=== PATIENT | male | born 1955 | race Two or more races ===

== ENCOUNTER 2024-08-01 11:04 | Inpatient (IN) | payer OTHER, MEDICAID ==
[2024-07-30 10:15] LABS: Urine Bacteria None Seen /hpf (None Seen)
[2024-07-30 10:24] LABS: Basophils # (auto) 0.1 10 ^3/uL (0-0.2); Basophils % (auto) 0.8 % (0.0-2.0); Eosinophils # (auto) 0.2 10 ^3/uL (0-0.8); Eosinophils % (auto) 2.5 % (0.0-7.0); Hematocrit 36.7 % (41.0-53.0); Hemoglobin 12.8 g/dL (13.5-17.5); Lymphocytes # (auto) 1.6 10 ^3/uL (0.4-5.4); Lymphocytes % (auto) 23.8 % (10.0-50.0); Mean Corpuscular Hemoglobin 31.2 pg (28.0-32.0); Mean Corpuscular Hgb Conc. 34.7 g/dL (32.0-36.0); Mean Corpuscular Volume 89.9 fL (80.0-100.0); Monocytes # (auto) 0.6 10 ^3/uL (0-1.3); Monocytes % (auto) 8.6 % (0.0-12.0); Neutrophils # (auto) 4.3 10 ^3/uL (1.6-8.6); Neutrophils % (auto) 64.3 % (37.0-80.0); Nucleated Red Blood Cells % 0.1 %; Platelet Count (auto) 254 10^3/uL (140-450); Red Blood Cells 4.08 10^6/uL (4.5-5.90); White Blood Cell 6.7 10^3/uL (4.4-10.8)
[2024-07-30 10:36] LABS: INR 1.03 (0.9-1.15); Partial Thromboplastin Time 29.8 SEC (24.5-34.5); Prothrombin Time 10.9 sec (9.3-11.8)
[2024-07-30 10:40] LABS: Urine Blood Negative /uL (Negative); Urine Clarity Clear (Clear); Urine Color Yellow (Yellow); Urine Mucus FEW (None Seen); Urine Protein, UAD Negative (Negative); Urine Squamous Epithelial Cell FEW /hpf (<5); Urine Urobilinogen 4 mg/dL (Negative); Urine WBC 1 /HPF (0-3); Urine pH 6.5 (5.0-9.0)
[2024-07-30 10:57] LABS: Alanine Aminotransferase 10 U/L (7-40); Albumin 4.5 g/dL (3.2-4.8); Alkaline Phosphatase 104 U/L (46-116); Anion Gap 9 (5-15); Aspartate Aminotransferase 17 U/L (<34); BUN/Creatinine Ratio 12.4 (10.0-20.0); Blood Urea Nitrogen 11 mg/dL (9-23); Calcium 9.8 mg/dL (8.7-10.4); Carbon Dioxide 28 mmol/L (20-31); Chloride 106 mmol/L (98-107); Glucose 81 mg/dL (74-106); Sodium 143 mmol/L (136-145); Total Protein 7.7 g/dL (5.7-8.2)
[2024-07-30 10:58] LABS: Bilirubin, Total 0.4 mg/dL (0.2-1.0)
[~2024-08-01] VITALS: Ht 180.3 cm; Wt 106.5 kg
[~2024-08-01 11:04] MED LIST: AML5T GT; CHOLCAP10 PO; CYAN-37 PO; ETOD-182 PO; FOLITAB22 PO; HYDR-4072 PO; HYDR-4491 OR; LIDO3CRE16 EX; LISI20TA56 PO; METH2.5T62 PO; TRIA0.1O EX
[2024-08-01] MEDS ORDERED: ONDANSETRON HCL 4 MG/2 ML VIAL ONE (13:30)
[2024-08-01] MEDS ORDERED: LIDOCAINE 1% INJ PF 5ML AMP ONE (13:30)
[2024-08-01] MEDS ORDERED: DexAMETHasone SOD PHOS 10MG/1ML VIAL INJ ONE ×2 (13:30→14:07)
[2024-08-01] MEDS ORDERED: GLYCOPYRROLATE 0.2 MG/ML 1ML VIAL ONE (13:30)
[2024-08-01] MEDS ORDERED: PROPOFOL 10 MG/ML 20 ML IV ONE ×4 (13:30→16:10)
[2024-08-01] MEDS ORDERED: KETAMINE 50mg/ML 1ml syringe ONE (13:31)
[2024-08-01] MEDS ORDERED: KETOROLAC TROMETH 30 MG/ML 1ML VIAL ONE (14:07)
[2024-08-01] MEDS: CELECOXIB 100 MG CAP PO ONE (14:09)
[2024-08-01] MEDS: ACETAMINOPHEN IV 1000 MG/100ML (10MG/ML) IV ONE (14:09)
[2024-08-01] MEDS: GABAPENTIN 300 MG CAP PO ONE (14:10)
[2024-08-01] MEDS: ceFAZolin 2 GM/D5W50ml 50 ML IV ONE (14:45)
[2024-08-01] MEDS: CEFEPIME 1GM/ 50ML 50 ML IV ONE (14:45)
[2024-08-01] MEDS: TRANEXAMIC ACID 20 ML ONE (15:01)
[2024-08-01] MEDS: VANCOMYCIN HCL 1000 MG VL ONE (15:01)
[2024-08-01 16:41] VITALS: PULSE 85; RESP 18; O2SAT 96
--- NOTE | 2024-08-01 16:59 | DVHOP2 ---
Operative Report - 2 Report Details Date: 08/01/24 Preop Diagnosis: LEFT KNEE DEGENERATIVE ARTHRITIS Postop Diagnosis: Left knee degenerative arthritis Surgeon: Sharee Haynes MD Anesthesiologist: Yaya Saeed/Nav Anesthesia: Regional Drains: Fahad closed wound suction Implant: Bc dhaliwal knee size 10 femur PS, size nine tibial base plate, size 10 poly, size 35 patella Consent: The patient was informed of the risks and benefits of the procedure. These include but are not limited to complications of anesthesia, postoperative infection, incomplete relief of symptoms, recurrence of symptoms, damage to blood vessels, nerves and tendons, deep venous thrombosis, pulmonary embolism and possible need for repeat surgery in the future. Complications: None Estimated Blood Loss: 75 cc Fluids: See anesthesia record Findings: Severe three compartment degenerative arthritis with denuded cartilage and eburnated bone osteophytes and severe loss of range of motion with a 45 degree flexion contracture and flexing only to 90 Indications for Surgery: Left knee degenerative arthritis with severe pain and functional impairment Name of Procedure Performed Left total knee arthroplasty Procedure Details Procedure Details: The patient was brought to the operating room and placed on the table in the supine position after being given spinal anesthetic with adequate analgesia ob tained. Patient also received local regional block. Surgical timeout was performed verifying patient, laterality and procedure Preop patient received IV cefepime IV Ancef and IV tranexamic acid. Tourniquet was applied to the lower extremity. Extremity was elevated, exsanguinated Esmarch, and tourniquet inflated. Lower extremity was prepped and draped in sterile fashion. Midline incision was made followed by medial arthrotomy. I exposed the anterior medial and lateral tibial plateau and the anterior distal femur. Bovie and aqua mantis were used for hemostasis. I excised the anterior meniscal tissue with Bovie. I excised a portion of the fat pad with Bovie. The patella was everted and the knee flexed. I drilled the distal femur and suctioned the hole to reduce the risk of fat emboli. I inserted intramedullary guide with 5 degree valgus setting. I pinned the distal femoral cutting block anteriorly. Intramedullary george was removed. Distal femoral cut was made and the block removed. I brought my attention to the tibia setting up the external cutting jig for the tibia paying attention to slope, rotation and varus valgus alignment. I set the depth and pinned the block. I used the external alignment george to aid in checking alignment. Bone cut was made and bone removed releasing soft tissue attachments with Bovie. Cutting block removed. I then checked the extension gap which was tight. I reset the distal femoral cutting block to remove additional 2 mm distally. I then recut the distal femur. I again tried the extension gap which was still too tight. I then reset the tibial block dropping it down under 2 mm and re cutting. At this point I then had adequate gap. The pins from the femur and tibia were removed. I flexed the knee and applied the femoral sizing guide to the femur. I checked the size and external rotation setting at 90 degrees to [place]ites[place] line and checking the epicondylar axis. I drilled the holes then removed the sizing guide and pin. I then tapped on the 4 in 1 cutting block and checked with the dashawn wing anteriorly to make sure that I would not notch then pinned the block. Cuts were made and the block and pins were removed. Bone was removed with curved osteotome. I used a rongeur to remove any remaining osteophytes at the femur and tibia. I then used a lamina supervisor print line to open up the back alternating between the medial and lateral side. Any remaining meniscal tissue was excised with scalpel. I used curved osteotome, curette and rongeur to remove any posterior osteophytes. I prophylactically coagulated with aqua mantis. I then tapped on the template for the box cut and pinned it. Box cut was made and bone removed. Template and pin removed. I then tapped on the femoral trial. I then brought my attention back to the tibia sizing it. I used the external alignment george to make sure that rotation and alignment were good. I made a Bovie lacy at the tibial tray lacy identifying rotation for later use. I tried various tibial polytrials. [I then brought my attention to the patella. I sequentially dissected soft tissue with Bovie. I checked the thickness with caliper. I set the appropriate depth of cut on the cutting guide. I attached the cutting guide made my cut. I then sized the patella and made my drill holes. I then placed the patella trial with appropriate depth based on overall precut thickness. ] The patella tracked nicely without thumb pressure. I removed the trials. I pinned the tray and used the reamer and keel punch. The implants were brought into the field while bone preparation was started. I used both normal saline irrigation and the CarboJet to prepare the bone. Once cement was ready I applied cement to the tibial implant and tibial bone tapped it on and removed excess cement in usual fashion. In similar fashion I tapped on the femoral implant. I inserted the trial polyethylene and brought the knee into 30 degrees flexion. [I then applied the patella implant in similar fashion holding pressure with the pressurization device.] I irrigated with bactisurg irrigant. Once cement cured, I checked stability and range of motion as well as patella tracking. tourniquet was released and hemostasis maintained with aqua mantis. I inserted the trial poly again and checked stability. The trial poly at this point seemed a little lax on the lateral side in flexion so I elected to switch to a constrained poly of the same thickness. I used a 2 grams of vancomycin half of which was placed deep and half superficial. I repaired the extensor mechanism with the knee in flexion with #1 Ethibond interrupted [id number]. Deep subcutaneous tissue was closed with 0 Vicryl. Superficial subcutaneous tissue was closed with 2-0 vicryl interrupted. Skin was closed with patricia. I then applied the [fahad closed wound suction]. Patient tolerated the procedure well and was brought to recovery room in stable condition. Condition Stable Disposition Still a Patient SHAREE HAYNES MD Aug 01, 2024 16:59
[2024-08-01] MEDS: KETOROLAC TROMETH 30 MG/ML 1ML VIAL IV ONE (17:00)
[2024-08-01] MEDS ORDERED: ACETAMINOPHEN 325 MG TAB PO PRN (17:00)
[2024-08-01] MEDS: METOCLOPRAMIDE HCL 5MG/ml INJ 2ml VIAL IV ONE (17:00)
[2024-08-01] MEDS ORDERED: MORPHINE SULFATE INJ 2 MG/ml SYRG IV PRN (17:00)
[2024-08-01] MEDS ORDERED: HYDROmorphone HCL 2 MG/ML VL/or syr IV PRN ×2 (17:00)
[2024-08-01] MEDS ORDERED: MORPHINE SULFATE 4 MG/ML SYR/VIAL IV PRN (17:00)
[2024-08-01] MEDS: ACETAMINOPHEN 325 MG TAB PO SCH (17:59)
[2024-08-01] MEDS: KETOROLAC TROMETH 30 MG/ML 1ML VIAL IV SCH (17:59)
[2024-08-01 18:29] VITALS: BP 149/81; PULSE 81; RESP 18; TEMP 98; O2SAT 97
--- NOTE | 2024-08-01 18:41 | DVH ---
EXAM: XR Left Knee, 3 Views CLINICAL INDICATION: Postop TECHNIQUE: Three views of the left knee. COMPARISON: None FINDINGS: BONES/JOINTS: Total knee replacement. Intact hardware. Anatomic position. No acute fracture. No dislocation. SOFT TISSUES: Soft tissue swelling emphysema. Surgical skin patricia. OTHER FINDINGS: . IMPRESSION: Postoperative changes as above.
[2024-08-01] MEDS: D5W/LACTATED RINGERS 1,000 ML IV SCH (18:54)
[2024-08-01 20:00] VITALS: PULSE 81
[2024-08-01 21:00] VITALS: BP 147/81; PULSE 87; RESP 19; TEMP 97.5; O2SAT 98
[2024-08-01] MEDS: PREGABALIN 25 MG CAP PO SCH (22:36)
[2024-08-01] MEDS: ceFAZolin 2 GM/D5W50ml 50 ML IV SCH (22:36)
[2024-08-02 01:00] VITALS: BP 136/79; PULSE 84; RESP 19; TEMP 97.8; O2SAT 96
[2024-08-02 05:00] VITALS: BP 146/80; PULSE 81; RESP 19; TEMP 97.4; O2SAT 95
[2024-08-02] MEDS: oxyCODONE HCL 5MG TAB PO PRN ×2 (07:04→09:43)
[2024-08-02 07:46] LABS: Chloride 101 mmol/L (98-107); Potassium 3.9 mmol/L (3.5-5.1)
[2024-08-02 07:47] LABS: Anion Gap 9 (5-15); Carbon Dioxide 25 mmol/L (20-31)
[2024-08-02 07:48] LABS: Basophils # (auto) 0 10 ^3/uL (0-0.2); Basophils % (auto) 0.1 % (0.0-2.0); Eosinophils # (auto) 0 10 ^3/uL (0-0.8); Hematocrit 33.8 % (41.0-53.0); Hemoglobin 11.4 g/dL (13.5-17.5); Lymphocytes # (auto) 0.5 10 ^3/uL (0.4-5.4); Lymphocytes % (auto) 5.2 % (10.0-50.0); Mean Corpuscular Hemoglobin 29.9 pg (28.0-32.0); Mean Corpuscular Hgb Conc. 33.7 g/dL (32.0-36.0); Mean Corpuscular Volume 88.7 fL (80.0-100.0); Monocytes # (auto) 0.5 10 ^3/uL (0-1.3); Monocytes % (auto) 5.2 % (0.0-12.0); Neutrophils # (auto) 8.2 10 ^3/uL (1.6-8.6); Neutrophils % (auto) 89.5 % (37.0-80.0); Platelet Count (auto) 212 10^3/uL (140-450); Red Blood Cells 3.81 10^6/uL (4.5-5.90); Red Cell Distribution Width 13.8 % (11.8-14.3); White Blood Cell 9.2 10^3/uL (4.4-10.8)
[2024-08-02 07:52] LABS: Blood Urea Nitrogen 12 mg/dL (9-23)
[2024-08-02 07:53] LABS: Calcium 8.5 mg/dL (8.7-10.4); Glucose 150 mg/dL (74-106); Sodium 135 mmol/L (136-145)
[2024-08-02 08:00] VITALS: PULSE 81
[2024-08-02 08:51] VITALS: BP 144/86; PULSE 81; RESP 17; TEMP 96.9; O2SAT 97
[2024-08-02] MEDS: amLODIPine BESYLATE 5 MG TAB PO SCH (09:42)
[2024-08-02] MEDS: LISINOPRIL 20 MG TAB PO SCH (09:43)
[2024-08-02] MEDS: ASPirin 81 mg TAB PO SCH (09:43)
[2024-08-02] MEDS: Folic Acid-Pyridoxine-Cyancoba (Folbic) PO SCH (09:44)
[2024-08-02 13:00] VITALS: BP 144/85; PULSE 82; RESP 18; TEMP 97.4; O2SAT 98
--- NOTE | 2024-08-02 15:34 | DVHDS2 ---
Discharge Summary Date of Admission Aug 01, 2024 at 16:48 Date of Discharge: Aug 02, 2024 Labs/Diagnostic Data: Laboratory Results Test 08/02/24 06:17 07/30/24 10:08 White Blood Count 9.2 10^3/uL (4.4-10.8) Red Blood Count 3.81 10^6/uL (4.5-5.90) Hemoglobin 11.4 g/dL (13.5-17.5) Hematocrit 33.8 % (41.0-53.0) Mean Corpuscular Volume 88.7 fL (80.0-100.0) Mean Corpuscular Hemoglobin 29.9 pg (28.0-32.0) Mean Corpuscular Hemoglobin Concent 33.7 g/dL (32.0-36.0) Red Cell Distribution Width 13.8 % (11.8-14.3) Platelet Count 212 10^3/uL (140-450) Mean Platelet Volume 9.0 fL (6.9-10.8) Neutrophils (%) (Auto) 89.5 % (37.0-80.0) Lymphocytes (%) (Auto) 5.2 % (10.0-50.0) Monocytes (%) (Auto) 5.2 % (0.0-12.0) Eosinophils (%) (Auto) 0.0 % (0.0-7.0) Basophils (%) (Auto) 0.1 % (0.0-2.0) Neutrophils # (Auto) 8.2 10 ^3/uL (1.6-8.6) Lymphocytes # (Auto) 0.5 10 ^3/uL (0.4-5.4) Monocytes # (Auto) 0.5 10 ^3/uL (0-1.3) Eosinophils # (Auto) 0 10 ^3/uL (0-0.8) Basophils # (Auto) 0 10 ^3/uL (0-0.2) Nucleated Red Blood Cells 0.0 % Sodium Level 135 mmol/L (136-145) Potassium Level 3.9 mmol/L (3.5-5.1) Chloride Level 101 mmol/L (98-107) Carbon Dioxide Level 25 mmol/L (20-31) Anion Gap 9 (5-15) Blood Urea Nitrogen 12 mg/dL (9-23) Creatinine 0.75 mg/dL (0.700-1.30) Glomerular Filtration Rate Calc 99 mL/min (>90) BUN/Creatinine Ratio 16.0 (10.0-20.0) Serum Glucose 150 mg/dL (74-106) Calcium Level 8.5 mg/dL (8.7-10.4) Prothrombin Time 10.9 sec (9.3-11.8) Prothrombin Time INR 1.03 (0.9-1.15) Activated Partial Thromboplast Time 29.8 SEC (24.5-34.5) Urine Color Yellow (Yellow) Urine Clarity Clear (Clear) Urine pH 6.5 (5.0-9.0) Urine Specific [place] 1.020 (1.001-1.035) Urine Protein Negative (Negative) Urine Ketones Negative (Negative) Urine Blood Negative /uL (Negative) Urine Nitrite Negative (Negative) Urine Bilirubin Negative (Negative) Urine Urobilinogen 4 mg/dL (Negative) Urine Leukocyte Esterase Negative /uL (Negative) Urine RBC 1 /hpf (0 - 3) Urine Microscopic WBC 1 /HPF (0-3) Urine Squamous Epithelial Cells Few /hpf (<5) Urine Bacteria None seen /hpf (None Seen) Urine Mucus Few (None Seen) Urine Glucose Normal mg/dL (Normal) Total Bilirubin 0.4 mg/dL (0.2-1.0) Aspartate Amino Transferase (AST) 17 U/L (<34) Alanine Aminotransferase (ALT) 10 U/L (7-40) Alkaline Phosphatase 104 U/L (46-116) Total Protein 7.7 g/dL (5.7-8.2) Albumin 4.5 g/dL (3.2-4.8) Other Laboratory Tests 08/02/24 06:17 Brief Hx & Hospital Course: Patient was brought to the hospital yesterday to undergo a left total knee arthroplasty, he tolerated the procedure well without complication was kept overnight for postop observation. He has remained medically stable denying any overnight events and reports some postoperative knee pain that has been well managed with the help of medication. Patient reports that his with the help of physical therapy and his walker and was able to get down the luu around the nurses station and participated with the pin pain. Patient is otherwise feeling well and would like to go home. Condition at Discharge: Stable Final Diagnosis/Problems List Left knee degenerative arthritis Discharge Disposition: Home Discharge Instruct/Medications Diet: Regular Activity: See Comment Activity comment: Patient advised to remain weight-bearing as tolerated with the assistance of a walker Follow Up/Referral: I instructed the patient to follow up with our office in 10-14 days for his 1st postoperative evaluation Medications: Rx Sent via our outpatient EMR system Discharge Statement: "Patient was advised to return to the ER or call 911 if any headaches, dizziness, shortness of breath, chest pain, abdominal pain, bleeding, fevers, or worsening of medical condition. Patient was counseled about treatment plan, medications, possible side effects, patientverbalized understanding. All questions were answered to the best of my ability. This discharge took greater then 30 minutes in planning, reviewing documentation, counseling the patient, and discussing with other team members." ASSESSMENT ASSESSMENT Assessment Left knee degenerative arthritis STEFANIE BENDER Aug 02, 2024 15:34
--- NOTE | 2024-08-02 15:36 | DVHPN2 ---
Progress Note - Dictate Date Seen: Aug 02, 2024 Medical Necessity Reason Pt with a Central, PICC or Fol: No Subjective Patient was lying comfortably in bed during my evaluation and reports some postoperative knee pain that is being well managed with the help of pain medication. Patient reports that he was able to get up and walk with the help of physical therapy and his walker and was able to get down the luu around the nurses station and back to his bed with minimal pain. Patient is otherwise feeling well denying any complaints or concerns during my evaluation and would like to go home. vital signs Vital Sign Date Time Temp Pulse Resp B/P (MAP) Pulse Ox O2 Delivery O2 Flow Rate FiO2 08/02/24 13:00 97.4 82 18 144/85 (104) 98 97.4 08/02/24 08:00 Room Air* 0 21 Total Intake and Output 08/01/24 08/01/24 08/02/24 15:00 23:00 07:00 Intake Total 200 ml 20 ml 800 ml Output Total 775 ml Balance 200 ml 20 ml 25 ml medications Current Medications Medications Dose Ordered Sig/Antonia Route Start Time Stop Time Status Last Admin Dose Admin Amlodipine Besylate 10 mg DAILY PO 08/02/24 10:00 08/02/24 09:42 10 MG Lisinopril 20 mg DAILY PO 08/02/24 10:00 08/02/24 09:43 20 MG Patient Own Medication 1 tab DAILY PO 08/02/24 10:00 Dextrose/Lactated Ringer's 1,000 ml @ 100 mls/hr Q10H IV 08/01/24 17:00 08/02/24 12:30 100 MLS/HR Acetaminophen 650 mg Q4HP PRN PO 08/01/24 17:00 Acetaminophen 650 mg Q6HR PO 08/01/24 18:00 08/02/24 12:30 650 MG Ketorolac Tromethamine 15 mg Q6HR IV 08/01/24 18:00 08/06/24 17:59 08/02/24 12:30 15 MG Pregabalin 50 mg BID PO 08/01/24 22:00 08/02/24 09:42 50 MG Oxycodone HCl 5 mg Q4HP PRN PO 08/01/24 17:00 08/02/24 09:43 5 MG Oxycodone HCl 10 mg Q4HP PRN PO 08/01/24 17:00 08/02/24 13:16 10 MG Aspirin 81 mg BID PO 08/02/24 10:00 08/02/24 09:43 81 MG objective A&O x4 in no acute distress Knee range of motion grossly limited with pain on movement Randell dressing clean, dry, intact, and maintaining suction No distal edema or calf tenderness to palpation Neurovascularly intact with cap refill less than 2 seconds laboratory and microbiology Laboratory Tests 08/02/24 06:17 Test 08/02/24 06:17 Range/Units Serum Glucose 150 H 74-106 mg/dL Assessment/Plan Patient to be discharged home and advised to remain weight-bearing as tolerated with the assistance of a walker. I advised the patient to maintain his dressings clean, dry, intact, and maintaining suction and to follow up with our office in 10-14 days for his 1st postoperative evaluation. Rx sent via our outpatient EMR system. He understood and agreed. Plan discussed with: Patient STEFANIE BENDER Aug 02, 2024 15:36
[2024-08-02 16:30] VITALS: BP 143/71; PULSE 69; RESP 18; TEMP 97.4; O2SAT 95
== END 2024-08-02 19:41 | disposition home health service (06) | DRG 470 ==
LOC: SUR 11:04 → OVERFLOW 16:48 → TELE-CENTR 18:06
PROVIDERS: ADMIT Orthopaedic Surgery; ATTEND Orthopaedic Surgery
PROC: 0SRD0J9 Replacement of Left Knee Joint with Synthetic Substitute, Cemented, Open Approach (ICD-10-PCS; principal; 2024-08-01 14:24)
DX: M17.12 Unilateral primary osteoarthritis, left knee (principal); I10 Essential (primary) hypertension; Z68.30 Body mass index [BMI] 30.0-30.9, adult; E66.3 Overweight; M25.762 Osteophyte, left knee
CPT/HCPCS: 36415; 73562; 80048; 80053; 81001; 85025; 85610; 85730; 86850; 86900; 86901; 97163; G0378; J0131; J1100; J1885; J2405; J2704

== ENCOUNTER 2024-11-09 13:51 | Emergency (ER) | payer OTHER, MEDICAID ==
[~2024-11-09] VITALS: Ht 180.3 cm; Wt 102.2 kg
--- NOTE | 2024-11-09 14:30 | ECG ---
[facility] Test Date: 2024-11-09 Test Time: 13:55:34 Pat Name: PAUL AQUINO Department: [facility] ED Patient ID: [facility]-[id number] Room: Gender: M Lactation Nurse: ALFONZO : 1955 Requested By: KAMAR ARVIZU Order Number: [id number] Reading MD: Measurements Intervals [place] Rate: 72 P: 41 [place]: 229 QRS: 19 QRSD: 93 T: 55 QT: 411 QTc: 450 Interpretive Statements Sinus rhythm Ventricular bigeminy Prolonged OH interval Please click the below link to view image of tracing.
[2024-11-09 14:52] LABS: Hematocrit 39.4 % (41.0-53.0); Hemoglobin 13.1 g/dL (13.5-17.5); Mean Corpuscular Hemoglobin 29.8 pg (28.0-32.0); Mean Corpuscular Volume 89.9 fL (80.0-100.0); Nucleated Red Blood Cells % 0.1 %
[2024-11-09 14:53] LABS: Chloride 102 mmol/L (98-107); Potassium 3.7 mmol/L (3.5-5.1); Sodium 139 mmol/L (136-145)
[2024-11-09 14:54] LABS: Anion Gap 7 (5-15); Calcium 9.4 mg/dL (8.7-10.4); Carbon Dioxide 30 mmol/L (20-31)
--- NOTE | 2024-11-09 14:55 | ED.PDOC ---
HPI Comments This is a 69 year-old male who presents to the ED via EMS with a chief complaint of general weakness as of X1 week ago. Patient reports being seen by a local pain management clinic today for his arthritis and back pain where his observed heart rate beat at 33 BPM. Per EMS, patients heart rate was measured to be in the 70s, with bigeminy and trigeminy observed. EMS additionally reports a blood pressure of 136/78. Patient has no further complaints at this time and otherwise denies chest pain, dizziness, headache, slurred speech, N/V/D, blurred vision, or palpitations. Chief Complaint: General Weakness Time Seen by MD: 14:24 Reviewed Notes: Nurses Notes, Medications, Allergies Allergies: Coded Allergies: NO KNOWN ALLERGIES (Unverified , 07/25/24) Home Meds Reported Medications Folic [id number]-[id number] (Folbic) Tab, 1 TAB PO DAILY, #90 TAB 3 Refills 07/25/24 Cyanocobalamin (B12) 1,000 Mcg/15 Ml Liq, 1000 MCG PO DAILY, LIQ 07/25/24 Triamcinolone Acetonide (Triamcinolone Acetonide) 0.1 % Oin, 0.1 % EX PRN, OIN 07/25/24 Hydroxychloroquine Sulfate (PLAQUENIL) 200 Mg Tab, 200 MG OR DAILY, TAB 07/25/24 Hydrocodone-Acetaminophen (Hydrocodone/Acetaminophen 10-325 mg) 1 Tab Tab, 1 TAB PO TID PRN for prn, TAB 07/25/24 Methotrexate (Methotrexate Sodium) 2.5 Mg Tab, 2.5 MG PO QWEEKLY, TAB 07/25/24 Cholecalciferol (D2000 Ultra Strength) 2,000 Unit Cap, 59364 UNIT PO QWEEKLY, CAP 07/25/24 Lisinopril (Lisinopril) 20 Mg Tab, 20 MG PO DAILY, TAB 07/25/24 Amlodipine Besylate (NORVASC TABLET) 5 Mg Tb, 10 MG GT DAILY, TAB 07/25/24 Etodolac (Etodolac) 400 Mg Tab, 500 MG PO BID PRN for prn, TAB 07/25/24 Lidocaine Hcl (Lidocaine) 3 % Cre, 1.8 % EX Q12HP PRN for pain, CRE 6/11/25 Information Source: Patient Mode of Arrival: EMS Severity: Moderate Timing: Weeks Duration: Since onset Prehospital treatment: None Onset: At Rest, With Light Exertion, With Heavy Exertion Associated Signs and Symptoms: Other (general weakness ) Past Medical History PAST MEDICAL HISTORY: HTN Surgical History: Denies all surgeries Family History Family History: Reviewed,noncontributory to illness, No family hx of Cancer, No family hx of DM, No family hx of Heart neeru, No family hx of HTN, No family hx ofKidney neeru, No family hx of Liver neeru, No family hx of Lung neeru, No family hx of Stroke Social History Smoker: Non-Smoker Alcohol: Denies ETOH Use Drugs: Denies Drug Use Lives In: Home Constitutional: reports: weakness; denies: chills, diaphoresis, fatigue, fever, malaise, sweats, others EENTM: denies: blurred vision, double vision, ear bleeding, ear discharge, ear drainage, ear pain, ear ringing, eye pain, eye redness, hearing loss, mouth pain, mouth swelling, nasal discharge, nose bleeding, nose congestion, nose pain, photophobia, tearing, throat pain, throat swelling, voice changes, others Respiratory: denies: cough, hemoptysis, orthopnea, SOB at rest, shortness of breath, SOB with excertion, stridor, wheezing, others Cardiovascular: denies: chest pain, dizzy spells, diaphoresis, Dyspnea on exertion, edema, irregular heart beat, left arm pain, lightheadedness, palpitations, PND, syncope, others Gastrointestinal: denies: abdomen distended, abdominal pain, blood streaked bowels, constipated, diarrhea, dysphagia, difficulty swallowing, hematemesis, melena, nausea, poor appetite, poor fluid intake, rectal bleeding, rectal pain, vomiting, others Genitourinary: denies: burning, dysuria, flank pain, frequency, hematuria, incontinence, penile discharge, penile sore, pain, testicle pain, testicle swelling, urgency, others Neurological: denies: dizziness, fainting, headache, left sided numbness, left sided weakness, numbness, paresthesia, pre-existing deficit, right sided numbness, right sided weakness, seizure, speech problems, tingling, tremors, weakness, others Musculoskeletal: denies: back pain, gout, joint pain, joint swelling, muscle pain, muscle stiffness, neck pain, others Integumetry: denies: bruises, change in color, change in hair/nails, dryness, laceration, lesions, lumps, rash, wounds, others Allergic/Immunocompromised: denies: Difficulty Healing, Frequent Infections, Hives, Itching, others Hematologic/Lymphatic: denies: anemia, blood clots, easy bleeding, easy bruising, swollen glands, others Endocrine: denies: excessive hunger, excessive sweating, excessive thirst, excessive urination, flushing, intolerance to cold, intolerance to heat, unexplained weight gain, unexplained weight loss, others Psychiatric: denies: anxiety, bipolar disorder, depression, hopeless, panic disorder, schizophrenia, sleepless, suicidal, others All Other Systems: Reviewed and Negative Physical Exam General Appearance: Moderate Distress HEENT: Normal ENT Inspection, Pharynx Normal, TMs Normal Neck: Full Range of Motion, Non-Tender, Normal, Normal Inspection Respiratory: Chest Non-Tender, Lungs Clear, No Accessory Muscle Use, No Resp iratory Distress, Normal Breath Sounds Cardiovascular: No Edema, No JVD, No Murmur, No Gallop, Normal Peripheral Pulses, Regular Rate/Rhythm Breast Exam: Deferred Gastrointestinal: No Organomegaly, Non Tender, No Pulsatile Mass, Normal Bowel Sounds, Soft Genitalia: Deferred Pelvic: Deferred Rectal: Deferred Extremities: No calf tenderness, Normal capillary refill, Normal inspection, Normal range of motion, Non-tender, No pedal edema Musculoskeletal : Apperance: Normal Neurologic: Alert, scroll shear operator II-XII nml as Tested, No Motor Deficits, Normal Affect, Normal Mood, No Sensory Deficits Cerebellar Function: NOT DONE Reflexes: NOT DONE Skin: Normal Color Peripheral Pulses: 3+ Radial (R), 3+ Radial (L) Lymphatic: No Adenopathy EKG EKG : Pulse Rate (adult): 71 [place]: Normal Cardiac Rhythm: NSR Block: None Hypertrophy: None ST: Normal Was a procedure done? Was a procedure done?: No CP Differential Dx Differential Diagnosis: A-fib, A-Flutter, Angina, Anxiety / Panic Attack, Atrial Dysrhythmia, Electrolyte Disorder Differential Diagnosis: CHF, HTN Essential Differential Diagnosis: Angina, Chest Wall Pain X-Ray, Labs, Meds, VS Vital Signs Date Time Temp Pulse Resp B/P (MAP) Pulse Ox O2 Delivery O2 Flow Rate FiO2 9/26/25 15:45 98.0 63 16 132/68 (89) 96 98.0 11/09/24 14:55 71 11/09/24 14:18 98.6 73 18 143/85 98 98.6 11/09/24 14:00 72 Lab Test 11/09/24 15:23 11/09/24 14:30 Range/Units Troponin I High Sensitivity 27 24 </=54 ng/L White Blood Count 4.9 4.4-10.8 10^3/uL Red Blood Count 4.39 L 4.5-5.90 10^6/uL Hemoglobin 13.1 L 13.5-17.5 g/dL Hematocrit 39.4 L 41.0-53.0 % Mean Corpuscular Volume 89.9 80.0-100.0 fL Mean Corpuscular Hemoglobin 29.8 28.0-32.0 pg Mean Corpuscular Hemoglobin Concent 33.1 32.0-36.0 g/dL Red Cell Distribution Width 15.5 H 11.8-14.3 % Platelet Count 209 140-450 10^3/uL Mean Platelet Volume 8.4 6.9-10.8 fL Neutrophils (%) (Auto) 65.8 37.0-80.0 % Lymphocytes (%) (Auto) 22.3 10.0-50.0 % Monocytes (%) (Auto) 8.1 0.0-12.0 % Eosinophils (%) (Auto) 2.7 0.0-7.0 % Basophils (%) (Auto) 1.1 0.0-2.0 % Neutrophils # (Auto) 3.2 1.6-8.6 10 ^3/uL Lymphocytes # (Auto) 1.1 0.4-5.4 10 ^3/uL Monocytes # (Auto) 0.4 0-1.3 10 ^3/uL Eosinophils # (Auto) 0.1 0-0.8 10 ^3/uL Basophils # (Auto) 0.1 0-0.2 10 ^3/uL Nucleated Red Blood Cells 0.1 % Sodium Level 139 136-145 mmol/L Potassium Level 3.7 3.5-5.1 mmol/L Chloride Level 102 98-107 mmol/L Carbon Dioxide Level 30 20-31 mmol/L Anion Gap 7 5-15 Blood Urea Nitrogen 16 9-23 mg/dL Creatinine 1.12 0.700-1.30 mg/dL Glomerular Filtration Rate Calc 72 >90 mL/min BUN/Creatinine Ratio 14.3 10.0-20.0 Serum Glucose 117 H 74-106 mg/dL Calcium Level 9.4 8.7-10.4 mg/dL Patient alert. States that he is feeling weak. EKG does show premature ventricular contraction. Blood pressure slightly elevated. Cardiac marker within normal limits. WBC within normal limits. Echocardiogram. Explained to the patient. Continue monitoring. Images Reviewed?: Images reviewed and evaluated by me Time of 1ST Reevaluation: 15:38 Reevaluation 1ST: Unchanged Patient Education/Counseling: Diagnosis, Treatment Family Education/Counseling: No Family Present Medical Screening: No EMC Exist At This Time SEPSIS Sepsis Screen Date sepsis recognized/suspect: Nov 09, 2024 Time Sepsis recognized/suspect: 1421 Recent Procedure: No On Antibiotic Therapy: No Respiratory Rate >20: No Heart Rate >90: No Temp<36 C (96.8 F) or >38.3 C: No SBP <90 or MAP <65 mmHG: No New Acute Mental Status Change: No Is the patient on CPAP, BIPAP,: No Physician Orders Chest Portable (11/09/24 14:20) Urinalysis (11/09/24 14:20) Troponin-I Hs (11/09/24 17:20) Vital Signs Date Time Temp Pulse Resp B/P (MAP) Pulse Ox O2 Delivery O2 Flow Rate FiO2 11/09/24 15:45 98.0 63 16 132/68 (89) 96 98.0 11/09/24 14:55 71 11/09/24 14:18 98.6 73 18 143/85 98 98.6 11/09/24 14:00 72 Laboratory Tests Test 11/09/24 14:30 White Blood Count 4.9 10^3/uL (4.4-10.8) Departure 1 Departure Time of Disposition: 16:52 Impression: Primary Impression: Premature ventricular contractions Additional Impressions: Generalized weakness HTN (hypertension) Qualified Codes: I10 - Essential (primary) hypertension Disposition: ADMITTED INPATIENT Admit to: Med Surg Condition: Guarded Critical Care Note Critical Care Time?: No Stability Stability form required: No Heart Score Heart Score: Heart Score Response (Comments) Value History Moderate Suspicious 1 EKG Normal 0 Age 45-64 1 Risk Factors 1 or 2 risk factors 1 Troponin Normal limit 0 Total 3 I personally scribed for KAMAR ARVIZU MD ([facility]) on 11/09/24 at 14:55. Electronically submitted by Rose Don ([facility]). KAMAR ARVIZU MD Nov 09, 2024 14:55
[2024-11-09 14:59] LABS: BUN/Creatinine Ratio 14.3 (10.0-20.0); Blood Urea Nitrogen 16 mg/dL (9-23)
--- NOTE | 2024-11-09 14:59 | DVH ---
CHEST RADIOGRAPH Indication: sob Technique: Single frontal view of the chest was obtained COMPARISON: XR CHEST 2 VIEW on DOS: 04/18/24, CR CHEST 2 VIEW on DOS: 07/07/23 FINDINGS: Lines and Tubes: None Lungs: Congestion Pleura: No effusion. No pneumothorax. Cardiomediastinal contours: Unremarkable Bones: Unremarkable IMPRESSION: Increased interstital prominence. This may represent pulmonary vascular congestion and/or viral pneum onia. Clinical correlation advised.
[2024-11-09 15:00] LABS: Glucose 117 mg/dL (74-106)
[2024-11-09 19:38] LABS: Urine Protein, UAD Negative (Negative)
[2024-11-09 20:01] VITALS: BP 135/60; PULSE 63; RESP 18; TEMP 98.4; O2SAT 100
== END 2024-11-09 21:13 | disposition left against medical advice (07) ==
LOC: EDBD 13:51 → ER 13:51
DX: I49.3 Ventricular premature depolarization (principal); R53.1 Weakness; I10 Essential (primary) hypertension; I44.0 Atrioventricular block, first degree; Z79.899 Other long term (current) drug therapy
CPT/HCPCS: 36415; 71045; 80048; 81001; 84484; 85025; 93005